=== PATIENT | male | born 1995 | race Caucasian/White ===

== ENCOUNTER 2018-11-09 04:10 | Emergency (ER) | payer OTHER, SELFPAY ==
[2018-11-09 04:12] VITALS: BP 151/86; PULSE 76; RESP 19; TEMP 36.6; O2SAT 98; BMI 30.4
[2018-11-09 04:15] VITALS: BP 151/86; PULSE 76; RESP 19; TEMP 36.6; O2SAT 98; BMI 30.4
--- NOTE | 2018-11-09 04:29 | ED.VIS.GEN ---
History of Present Illness Chief Complaint: ETOH Intox Narrative: Patient is a 22-year-old male who presents with alcohol intoxication. He is a [employer] student. He was found lying in the grass. He does not remember how he got there. He otherwise at this time has no complaints. He does admit to drinking alcohol. He denies any fall trauma injury. No pain. No nausea or vomiting. He denies any street drug use. He is answering questions appropriately. He has a history of DVT a few years ago and is no longer on anticoagulation. He takes no daily medications. Past Medical History - Allergies and Home Meds Allergies/Adverse Reactions: Allergies No Known Allergies Allergy (Verified 01/14/16 16:36) Primary Care Physician: Kobe Navas MD [Primary Care Provider] - Past Medical History: - - Prior DVT Surgical History: - - Knee surgery Smoking Status: Never smoker Review of Systems All systems negative except as indicated General: Denies: Fever Cardiovascular: Denies: Chest pain Respiratory: Denies: Dyspnea Gastrointestinal: Denies: Nausea, Vomiting Neurological: Denies: Headache Physical Exam Vital Signs/Narrative: Vital Signs Temp Pulse Resp BP Pulse Ox 11/09/18 04:15 97.8 F 76 19 H 151/86 H 98 11/09/18 04:12 97.8 F 76 19 H 151/86 H 98 General: Well nourished, Well developed Head: Normocephalic Eyes: Perrl, EOMI ENT: Moist mucous membranes Neck: Supple Cardiovascular: Regular rate, Regular rhythm Respiratory: No distress, CTA bilaterally Abdomen: Soft, Nontender, Nondistended Extremities: Nontender Skin: Normal color Neurological: Alert, Oriented x3 Psychological: Normal affect Diagnostic/Tx/Re-eval - Medical Decision Making Patient is alert and oriented. He knows that he is in [place] and of the hospital. He knows the month and his age. He is answering all questions appropriately. He has no complaints. I do not feel any diagnostic work-up is necessary at this time. He can be discharged to the [facility] for observation until clinically sober and then released. ED Disposition - Plan for ED Patient: Disposition: Home or Assisted Living Diagnosis: Alcohol intoxication Instructions: Alcohol Intoxication Referrals: Kobe Navas MD [Primary Care Provider] -
--- NOTE | 2018-11-09 04:40 | ED.RN ---
REPORT CALLED TO [facility]. THIS NURSE REVIEWED D/C INSTRUCTIONS WITH THE PT. PT VERBALIZED UNDERSTANDING OF INSTRUCTIONS. IV D/C. IV CATHETER INTACT. PT TOLERATED WELL. PT DENIES FURTHER NEEDS OR QUESTIONS AT THIS TIME. PT AMBULATES FROM ROOM ON OWN WITHOUT ASSISTANCE FROM STAFF
== END 2018-11-09 04:42 | disposition home or self-care (01) ==
PROVIDERS: Emergency Provider Emergency Medicine; Family Provider Pediatrics; PCP Pediatrics
DX: F10.129 Alcohol abuse with intoxication, unspecified (principal); Z86.718 Personal history of other venous thrombosis and embolism; Y90.9 Presence of alcohol in blood, level not specified
CPT/HCPCS: 99285; A4216